=== PATIENT | male | born 1995 | race Caucasian/White ===

== ENCOUNTER 2022-09-12 20:31 | Day surgery (SDC) | payer BC ==
[2022-09-12] MEDS ORDERED: Ondansetron 4 MG/2 ML SDV IVPUSH ONE (21:41)
[2022-09-12] MEDS ORDERED: ceFAZolin 2 GM in Sodium Chloride 0.9% 50 ML IV ONE (21:43)
[2022-09-12] MEDS ORDERED: metroNIDAZOLE/Normal Saline 500 MG in Premix Bag 1 BAG IV ONE (21:44)
[2022-09-12] MEDS ORDERED: Citric Acid/Sodium Citrate Solution 30 ML Cup PO ONE (21:51)
[2022-09-12] MEDS ORDERED: Ondansetron 4 MG/2 ML SDV ONE (21:56)
[2022-09-12] MEDS ORDERED: Propofol 200 MG/20 ML SDV ONE (21:56)
[2022-09-12] MEDS ORDERED: Midazolam 1 MG/ML 2 ML SDV ONE (21:56)
[2022-09-12] MEDS ORDERED: Rocuronium 50 MG/5 ML Vial ONE (21:56)
[2022-09-12] MEDS ORDERED: Succinylcholine 200 MG/10 ML MDV ONE (21:57)
[2022-09-12] MEDS ORDERED: Lidocaine 1% 5 ML VIAL ONE (21:57)
[2022-09-12] MEDS ORDERED: fentaNYL 100 MCG/2 ML SDV ONE (21:59)
[2022-09-12] MEDS ORDERED: Lactated Ringers 1,000 ML ONE ×2 (22:00→23:18)
[2022-09-12] MEDS ORDERED: Bupivacaine 0.5%/EPINEPHrine 1:200,000 50 ML MDV ONE (22:14)
[2022-09-12] MEDS ORDERED: Citric Acid/Sodium Citrate Solution 30 ML Cup ONE (22:15)
[2022-09-12] MEDS ORDERED: Dexamethasone 4 MG/ML 5 ML MDV ONE (22:54)
[2022-09-12] MEDS ORDERED: Sugammadex Sodium 200 MG/2 ML VIAL ONE (23:14)
[2022-09-12] MEDS ORDERED: fentaNYL 100 MCG/2 ML SDV IVPUSH PRN (23:38)
[2022-09-12] MEDS ORDERED: HYDROmorphone 0.5 MG/0.5 ML Syringe IVPUSH PRN (23:38)
[2022-09-12] MEDS ORDERED: Ondansetron 4 MG/2 ML SDV IVPUSH PRN (23:38)
[2022-09-13] MEDS ORDERED: Acetaminophen/HYDROcodone 325-5 MG Tab PO PRN (00:33)
== END 2022-09-13 01:00 | disposition home or self-care (01) ==
LOC: JD.ED 20:31 → JD.SDS 21:37
PROVIDERS: ATTEND Specialist
DX: K35.33 Acute appendicitis with perforation, localized peritonitis, and gangrene, with abscess (principal); K21.9 Gastro-esophageal reflux disease without esophagitis; F17.210 Nicotine dependence, cigarettes, uncomplicated; Z79.899 Other long term (current) drug therapy
CPT/HCPCS: 44970; A9270; J0330; J0690; J1100; J2250; J2405; J2704; J3010; J3490; J7120